=== PATIENT | male | born 1950 | race Two or more races ===

== ENCOUNTER 2017-08-08 12:39 | Outpatient (CLI) | payer BC ==
[2017-08-08 13:31] LABS: HEMATOCRIT 42 % (39-51); HEMOGLOBIN 14.1 g/dL (13.5-17.5); LYMPHOCYTES % (AUTO) 31.3 % (20.0-44.0); MEAN CORPUSCULAR HEMOGLOBIN 30 PG (26.0-33.0); MEAN CORPUSCULAR HGB CONC 34 g/dl (31.0-36.0); MEAN CORPUSCULAR VOLUME 90 fL (80-96); MONOCYTES % (AUTO) 7.1 % (2.0-12.0); NEUTROPHILS % (AUTO) 59.4 % (43.0-81.0); PLATELET COUNT (AUTO) 184 /CMM (150-450); RDW COEFFICIENT OF VARIATION 12.2 (11.5-15.0); RED BLOOD CELL COUNT(AUTO) 4.67 MIL/uL (4.5-6.0); WHITE BLOOD COUNT (AUTO) 7.3 K/uL (4.3-11.0)
[2017-08-08 13:32] LABS: BASOPHILS % (AUTO) 0.3 % (0.0-2.0); EOSINOPHILS # (AUTO) 0.1 /CMM (0.0-0.7); EOSINOPHILS % (AUTO) 1.9 % (0.0-6.0); LYMPHOCYTES # (AUTO) 2.3 /CMM (0.8-4.8); MONOCYTES # (AUTO) 0.5 /CMM (0.1-1.30); NEUTROPHILS # (AUTO) 4.4 /CMM (1.8-8.9)
[2017-08-08 13:40] LABS: INR 0.95 (0.87-1.13); PROTHROMBIN TIME 9.9 SECS (9.5-12.7)
[2017-08-08 14:19] LABS: ALBUMIN 3.7 g/dL (3.4-5.0); BILIRUBIN,TOTAL 0.4 mg/dL (0.2-1.0); CALCIUM, SERUM 8.6 mg/dL (8.5-10.1); CREATININE 1.1 mg/dL (0.6-1.3); POTASSIUM 3.8 mmol/L (3.5-5.1); TOTAL PROTEIN, SERUM 7.4 g/dL (6.4-8.2)
[2017-08-08 16:31] LABS: APPEARANCE,URINE CLEAR (CLEAR); BILIRUBIN,URINE NEGATIVE (NEGATIVE); BLOOD, URINE 1+ Ery/uL (NEGATIVE); COLOR,URINE YELLOW (YELLOW); KETONES,URINE NEGATIVE (NEGATIVE); LEUKOCYTE ESTERASE ,URINE NEGATIVE (NEGATIVE); NITRITE, URINE NEGATIVE (NEGATIVE); PH,URINE 6.5 (5.0-8.0); PROTEIN,URINE NEGATIVE (NEGATIVE); UGLUCOSE NEGATIVE (NEGATIVE); UROBILINOGEN,URINE 0.2 EU/dL (0.2)
[2017-08-08 17:06] LABS: BACTERIA,URINE Moderate /HPF (None Seen); SQUAMOUS EPITHELIAL CELL,UR Few /HPF (None Seen)
== END 2017-08-08 23:59 | disposition home or self-care (01) ==
LOC: LAB 12:39
PROVIDERS: ATTEND Family Medicine
DX: Z01.818 Encounter for other preprocedural examination (principal)
CPT/HCPCS: 36415; 71020-TC; 80053-TC; 81000-TC; 85025-TC; 85610-TC; 87086-TC

== ENCOUNTER 2018-04-30 11:28 | Outpatient (CLI) | payer BC ==
[2018-04-30 11:55] LABS: BASOPHILS % (AUTO) 0.5 % (0.0-2.0); HEMATOCRIT 45 % (39-51); HEMOGLOBIN 14.8 g/dL (13.5-17.5); LYMPHOCYTES # (AUTO) 1.6 /CMM (0.8-4.8); LYMPHOCYTES % (AUTO) 23.9 % (20.0-44.0); MEAN CORPUSCULAR HEMOGLOBIN 30 PG (26.0-33.0); MEAN CORPUSCULAR HGB CONC 33 g/dl (31.0-36.0); MEAN CORPUSCULAR VOLUME 91 fL (80-96); MONOCYTES # (AUTO) 0.4 /CMM (0.1-1.30); MONOCYTES % (AUTO) 6.1 % (2.0-12.0); NEUTROPHILS # (AUTO) 4.5 /CMM (1.8-8.9); NEUTROPHILS % (AUTO) 68.5 % (43.0-81.0); PLATELET COUNT (AUTO) 206 /CMM (150-450); RDW COEFFICIENT OF VARIATION 13.9 (11.5-15.0); RED BLOOD CELL COUNT(AUTO) 4.93 MIL/uL (4.5-6.0); WHITE BLOOD COUNT (AUTO) 6.6 K/uL (4.3-11.0)
[2018-04-30 12:08] LABS: ALBUMIN 3.8 g/dL (3.4-5.0); BILIRUBIN,TOTAL 0.6 mg/dL (0.2-1.0); CALCIUM, SERUM 8.1 mg/dL (8.5-10.1); CREATININE 1.1 mg/dL (0.6-1.3); POTASSIUM 4.1 mmol/L (3.5-5.1); TOTAL PROTEIN, SERUM 7.4 g/dL (6.4-8.2)
[2018-04-30 13:24] LABS: THYROID STIMULATING HORMONE 2.184 uIU/mL (0.358-3.74)
== END 2018-04-30 23:59 | disposition home or self-care (01) ==
LOC: LAB 11:28
PROVIDERS: ATTEND Family Medicine
DX: I70.0 Atherosclerosis of aorta (principal); R91.1 Solitary pulmonary nodule
CPT/HCPCS: 36415; 71250-TC; 80053-TC; 80061-TC; 84439-TC; 84443-TC; 85025-TC

== ENCOUNTER 2021-04-27 09:56 | Outpatient (CLI) | payer BC | END 2021-04-27 23:59 | disposition home or self-care (01) | LOC: CT 09:56 | PROVIDERS: ATTEND Family Medicine | DX: I25.10 Atherosclerotic heart disease of native coronary artery without angina pectoris (principal); R91.1 Solitary pulmonary nodule; I70.0 Atherosclerosis of aorta; I71.2 Thoracic aortic aneurysm, without rupture; J43.2 Centrilobular emphysema; J47.9 Bronchiectasis, uncomplicated; K76.89 Other specified diseases of liver; N20.0 Calculus of kidney; N28.1 Cyst of kidney, acquired; M47.815 Spondylosis without myelopathy or radiculopathy, thoracolumbar region; M85.88 Other specified disorders of bone density and structure, other site | CPT/HCPCS: 71250-TC ==

== ENCOUNTER 2021-07-19 08:17 | Outpatient (CLI) | payer BC ==
[2021-07-19 09:16] LABS: BASOPHILS # (AUTO) 0.1 K/uL (0.0-0.2); BASOPHILS % (AUTO) 0.9 % (0.0-2.0); EOSINOPHILS % (AUTO) 2.1 % (0.0-6.0); HEMATOCRIT 39 % (39-51); LYMPHOCYTES # (AUTO) 1.4 K/uL (0.8-4.8); LYMPHOCYTES % (AUTO) 20.4 % (20.0-44.0); MEAN CORPUSCULAR HGB CONC 33 g/dl (31.0-36.0); MEAN CORPUSCULAR VOLUME 92 fL (80-96); MONOCYTES # (AUTO) 0.5 K/uL (0.1-1.30); MONOCYTES % (AUTO) 6.7 % (2.0-12.0); NEUTROPHILS # (AUTO) 4.8 K/uL (1.8-8.9); NEUTROPHILS % (AUTO) 69.9 % (43.0-81.0); PLATELET COUNT (AUTO) 186 K/uL (150-450); RED BLOOD CELL COUNT(AUTO) 4.25 MIL/uL (4.5-6.0); WHITE BLOOD COUNT (AUTO) 6.9 K/uL (4.3-11.0)
[2021-07-19 10:37] LABS: CREATININE 1.1 mg/dL (0.6-1.3); POTASSIUM 3.5 mmol/L (3.5-5.1)
== END 2021-07-19 23:59 | disposition home or self-care (01) ==
LOC: LAB 08:17
PROVIDERS: ATTEND Internal Medicine
DX: I25.10 Atherosclerotic heart disease of native coronary artery without angina pectoris (principal); I10 Essential (primary) hypertension; D68.9 Coagulation defect, unspecified; R07.89 Other chest pain
CPT/HCPCS: 36415; 80048-TC; 85025-TC; 85610-TC; 85730-TC

== ENCOUNTER 2021-07-23 07:13 | Day surgery (SDC) | payer BC ==
[2021-07-23] VITALS (8 sets, daily range): BP systolic 89–119; BP diastolic 47–84
[~2021-07-23] VITALS: Ht 170.2 cm; Wt 53.1 kg
[2021-07-23] MEDS ORDERED: MIDAZOLAM HCL 2 MG/2ML VIAL ONE (08:34)
[2021-07-23] MEDS ORDERED: LIDOCAINE HCL/MPF 1% 30 ML VIAL IJ ONE (08:34)
[2021-07-23] MEDS ORDERED: FENTANYL PF 100MCG/2ML AMPUL ONE (08:34)
[2021-07-23] MEDS ORDERED: IV NS 0.9% 1,000 ML ONE (08:35)
[2021-07-23] MEDS ORDERED: NITROGLYCERIN IN 5 % DEXTROSE 250 ML IV ONE (08:35)
[2021-07-23] MEDS ORDERED: IV SET PRIMARY PUMP SET 1 EA INFUS.SET MC ONE (08:35)
[2021-07-23] MEDS ORDERED: IODIXANOL 150 ML IV ONE (08:56)
--- NOTE | 2021-07-23 10:33 | NUR ---
Placed oxygen saturation probe on right index finger of access site @99%. 3ml of air was removed, no bleeding noted. CMS WNL.
--- NOTE | 2021-07-23 10:48 | NUR ---
Placed oxygen saturation probe on right index finger of access site @98%. 3ml of air was removed, no bleeding noted.
--- NOTE | 2021-07-23 11:03 | NUR ---
Placed oxygen saturation probe on right index finger of access site @99%. 3ml of air was removed, no bleeding noted.
--- NOTE | 2021-07-23 11:18 | NUR ---
Placed oxygen saturation probe on right index finger of access site @99%. 5ml of air was removed, no bleeding noted.
--- NOTE | 2021-07-23 11:43 | NUR ---
IV removed. Catheter intact and site benign. Pressure and 4x4 applied to site. No bleeding noted.
[2021-07-23] MEDS ORDERED: ATOR20TA PO (11:52)
[2021-07-23] MEDS ORDERED: ASPI-1169 PO (11:52)
[2021-07-23] MEDS ORDERED: CYAN-51 PO (11:55)
--- NOTE | 2021-07-23 12:00 | NUR ---
Patient discharged to home in stable condition. Written and verbal after care instructions given. Patient verbalizes understanding of instruction.
== END 2021-07-23 12:05 | disposition home or self-care (01) ==
LOC: CATHLAB 07:13
PROVIDERS: ATTEND Internal Medicine
DX: R94.39 Abnormal result of other cardiovascular function study (principal); I10 Essential (primary) hypertension; Z98.890 Other specified postprocedural states; Z79.899 Other long term (current) drug therapy
CPT/HCPCS: 93458; J1644; J2250; J3010; J3490; J7030; Q9967; C1887; G0500

== ENCOUNTER 2021-09-29 11:12 | Outpatient (CLI) | payer BC ==
[~2021-09-29 11:12] MED LIST: ASPI-1169 PO; ATOR20TA PO; CYAN-51 PO
[2021-09-29 13:38] LABS: BASOPHILS # (AUTO) 0.1 K/uL (0.0-0.2); BASOPHILS % (AUTO) 0.9 % (0.0-2.0); EOSINOPHILS % (AUTO) 1.9 % (0.0-6.0); HEMATOCRIT 40 % (39-51); HEMOGLOBIN 13.1 g/dL (13.5-17.5); LYMPHOCYTES # (AUTO) 1.2 K/uL (0.8-4.8); LYMPHOCYTES % (AUTO) 13.9 % (20.0-44.0); MEAN CORPUSCULAR HGB CONC 33 g/dl (31.0-36.0); MEAN CORPUSCULAR VOLUME 93 fL (80-96); MONOCYTES # (AUTO) 0.7 K/uL (0.1-1.30); MONOCYTES % (AUTO) 8.4 % (2.0-12.0); NEUTROPHILS # (AUTO) 6.5 K/uL (1.8-8.9); NEUTROPHILS % (AUTO) 74.9 % (43.0-81.0); PLATELET COUNT (AUTO) 259 K/uL (150-450); RED BLOOD CELL COUNT(AUTO) 4.28 MIL/uL (4.5-6.0); WHITE BLOOD COUNT (AUTO) 8.6 K/uL (4.3-11.0)
[2021-09-29 13:40] LABS: BILIRUBIN,URINE NEGATIVE (NEGATIVE); COLOR,URINE YELLOW (YELLOW); LEUKOCYTE ESTERASE ,URINE NEGATIVE (NEGATIVE); NITRITE, URINE NEGATIVE (NEGATIVE); PROTEIN,URINE NEGATIVE (NEGATIVE); UGLUCOSE NEGATIVE (NEGATIVE); UROBILINOGEN,URINE 0.2 EU/dL (0.2)
[2021-09-29 13:59] LABS: ALBUMIN 3.3 g/dL (3.4-5.0); BILIRUBIN,TOTAL 0.3 mg/dL (0.2-1.0); CALCIUM, SERUM 8.3 mg/dL (8.5-10.1); CREATININE 1.1 mg/dL (0.6-1.3); POTASSIUM 3.5 mmol/L (3.5-5.1); TOTAL PROTEIN, SERUM 7.1 g/dL (6.4-8.2)
[2021-09-29 14:09] LABS: THYROID STIMULATING HORMONE 2.005 uIU/mL (0.358-3.74)
[2021-09-29 16:46] LABS: BACTERIA,URINE None seen /HPF (None Seen); SQUAMOUS EPITHELIAL CELL,UR Few /HPF (None Seen); WBC,URINE 0-2 /HPF (0-3)
== END 2021-09-29 23:59 | disposition home or self-care (01) ==
LOC: LAB 11:12
PROVIDERS: ATTEND Family Medicine
DX: E55.9 Vitamin D deficiency, unspecified (principal); R73.9 Hyperglycemia, unspecified; Z79.899 Other long term (current) drug therapy
CPT/HCPCS: 36415; 80053-TC; 80061-TC; 81001; 82306; 84439-TC; 84443-TC; 85025-TC; 87086-TC

== ENCOUNTER 2021-10-19 10:35 | Outpatient (CLI) | payer BC ==
[2021-10-19 11:16] LABS: BILIRUBIN,URINE NEGATIVE (NEGATIVE); COLOR,URINE YELLOW (YELLOW); LEUKOCYTE ESTERASE ,URINE TRACE (NEGATIVE); NITRITE, URINE NEGATIVE (NEGATIVE); PH,URINE 6.5 (5.0-8.0); PROTEIN,URINE NEGATIVE (NEGATIVE); UGLUCOSE NEGATIVE (NEGATIVE); UROBILINOGEN,URINE 0.2 EU/dL (0.2)
[2021-10-19 11:43] LABS: BACTERIA,URINE Rare /HPF (None Seen); SQUAMOUS EPITHELIAL CELL,UR Rare /HPF (None Seen); WBC,URINE 0-2 /HPF (0-3)
== END 2021-10-19 23:59 | disposition home or self-care (01) ==
LOC: LAB 10:35
PROVIDERS: ATTEND Family Medicine
DX: R31.9 Hematuria, unspecified (principal)
CPT/HCPCS: 81001; 87086-TC

== ENCOUNTER 2021-10-25 09:55 | Outpatient (CLI) | payer BC ==
[2021-10-25] MEDS ORDERED: IV NS 0.9% 250 ML IV ONE (10:23)
[2021-10-25] MEDS ORDERED: IOHEXOL-300 100 ML VIAL IV ONE (10:23)
== END 2021-10-25 23:59 | disposition home or self-care (01) ==
LOC: CT 09:55
PROVIDERS: ATTEND Family Medicine
DX: I71.2 Thoracic aortic aneurysm, without rupture (principal); I25.10 Atherosclerotic heart disease of native coronary artery without angina pectoris; J43.9 Emphysema, unspecified; R31.9 Hematuria, unspecified; R91.1 Solitary pulmonary nodule; I70.0 Atherosclerosis of aorta; K76.89 Other specified diseases of liver; N28.1 Cyst of kidney, acquired; N20.0 Calculus of kidney; N40.0 Benign prostatic hyperplasia without lower urinary tract symptoms
CPT/HCPCS: 71275; 74178; J7050; Q9967

== ENCOUNTER 2022-10-04 09:26 | Outpatient (CLI) | payer BC ==
[2022-10-04] MEDS ORDERED: LIDOCAINE HCL/MPF 1% 30 ML VIAL IJ ONE (10:23)
[2022-10-04] MEDS ORDERED: MUPIROCIN 2% CREAM 15 GM TUBE TP ONE (11:05)
[2022-10-04] MEDS ORDERED: LIDOCAINE SOLN 4% 50 ML BOTTLE ONE (11:06)
== END 2022-10-04 23:59 | disposition home or self-care (01) ==
LOC: WOU 09:26
PROVIDERS: ATTEND Podiatrist Foot & Ankle Surgery
DX: L60.0 Ingrowing nail (principal); L03.032 Cellulitis of left toe; M79.672 Pain in left foot; M79.671 Pain in right foot; Z79.82 Long term (current) use of aspirin
CPT/HCPCS: 11730; J3490

== ENCOUNTER 2022-10-10 09:02 | Outpatient (CLI) | payer BC ==
[2022-10-10 10:12] LABS: CALCIUM, SERUM 8.6 mg/dL (8.5-10.1); CREATININE 1.3 mg/dL (0.6-1.3); POTASSIUM 3.9 mmol/L (3.5-5.1)
== END 2022-10-10 23:59 | disposition home or self-care (01) ==
LOC: LAB 09:02
PROVIDERS: ATTEND Family Medicine
DX: I71.20 Thoracic aortic aneurysm, without rupture, unspecified (principal)
CPT/HCPCS: 36415; 80048-TC

== ENCOUNTER 2022-10-11 08:54 | Outpatient (CLI) | payer BC ==
[2022-10-11] MEDS ORDERED: IOHEXOL-350 100 ML VIAL IV ONE (09:15)
== END 2022-10-11 23:59 | disposition home or self-care (01) ==
LOC: CT 08:54
PROVIDERS: ATTEND Family Medicine
DX: J43.2 Centrilobular emphysema (principal); R91.1 Solitary pulmonary nodule; I71.20 Thoracic aortic aneurysm, without rupture, unspecified; K76.89 Other specified diseases of liver; I25.10 Atherosclerotic heart disease of native coronary artery without angina pectoris
CPT/HCPCS: 71275; Q9967

== ENCOUNTER 2023-01-13 10:34 | Outpatient (CLI) | payer BC ==
[2023-01-13 12:23] LABS: BASOPHILS # (AUTO) 0.1 K/uL (0.0-0.2); EOSINOPHILS % (AUTO) 2.7 % (0.0-6.0); HEMATOCRIT 43 % (39-51); HEMOGLOBIN 13.8 g/dL (13.5-17.5); LYMPHOCYTES # (AUTO) 1.7 K/uL (0.8-4.8); LYMPHOCYTES % (AUTO) 23.3 % (20.0-44.0); MEAN CORPUSCULAR HGB CONC 32 g/dl (31.0-36.0); MEAN CORPUSCULAR VOLUME 90 fL (80-96); MONOCYTES # (AUTO) 0.6 K/uL (0.1-1.30); MONOCYTES % (AUTO) 7.9 % (2.0-12.0); NEUTROPHILS # (AUTO) 4.7 K/uL (1.8-8.9); NEUTROPHILS % (AUTO) 65.1 % (43.0-81.0); PLATELET COUNT (AUTO) 173 K/uL (150-450); RED BLOOD CELL COUNT(AUTO) 4.74 MIL/uL (4.5-6.0); WHITE BLOOD COUNT (AUTO) 7.2 K/uL (4.3-11.0)
[2023-01-13 12:24] LABS: BILIRUBIN,URINE NEGATIVE (NEGATIVE); COLOR,URINE YELLOW (YELLOW); LEUKOCYTE ESTERASE ,URINE NEGATIVE (NEGATIVE); NITRITE, URINE NEGATIVE (NEGATIVE); PH,URINE 6.5 (5.0-8.0); PROTEIN,URINE NEGATIVE (NEGATIVE); UGLUCOSE NEGATIVE (NEGATIVE); UROBILINOGEN,URINE 0.2 EU/dL (0.2)
[2023-01-13 12:26] LABS: BACTERIA,URINE Rare /HPF (None Seen); SQUAMOUS EPITHELIAL CELL,UR Few /HPF (None Seen); WBC,URINE 0-2 /HPF (0-3)
[2023-01-13 12:38] LABS: IRON, SERUM 53 ug/dl (50-175); TOTAL IRON BINDING CAPACITY 298 ug/dl (250-450)
[2023-01-13 12:48] LABS: CHOLESTEROL 120 mg/dL (<200); FERRITIN 103 ng/mL (8-388); HDL CHOLESTEROL 44 mg/dL (40-60); LDL 71 mg/dL (0-99); THYROID STIMULATING HORMONE 2.194 uIU/mL (0.358-3.74); TRIGLYCERIDES 88 mg/dL (30-150); URIC ACID 5.3 mg/dL (2.6-7.2)
[2023-01-13 13:02] LABS: ALANINE AMINOTRANSFERASE 61 U/L (12-78); ALBUMIN 3.6 g/dL (3.4-5.0); ALKALINE PHOSPHATASE 88 U/L (46-116); ASPARTATE AMINOTRANSFERASE 35 U/L (15-37); BILIRUBIN,TOTAL 0.3 mg/dL (0.2-1.0); CALCIUM, SERUM 8.4 mg/dL (8.5-10.1); CARBON DIOXIDE 29 mmol/L (21-32); CHLORIDE 109 mmol/L (98-107); CREATININE 1.4 mg/dL (0.6-1.3); GLUCOSE 88 mg/dL (74-106); MAGNESIUM 2.4 mg/dL (1.8-2.4); POTASSIUM 3.9 mmol/L (3.5-5.1); SODIUM SERUM 143 mmol/L (136-145); TOTAL PROTEIN, SERUM 7.1 g/dL (6.4-8.2); UREA NITROGEN, BLOOD 21 mg/dL (7-18)
== END 2023-01-13 23:59 | disposition home or self-care (01) ==
LOC: LAB 10:34
PROVIDERS: ATTEND Family Medicine
DX: I10 Essential (primary) hypertension (principal)
CPT/HCPCS: 36415; 80053-TC; 80061-TC; 81001; 82306; 82607-TC; 82728-TC; 83540-TC; 83735-TC; 84439-TC; 84443-TC; 84481; 84550-TC; 85025-TC

== ENCOUNTER → 2024-02-07 | Outpatient (CLI) | payer BC | END | disposition home or self-care (01) | LOC: CT 10:10 | PROVIDERS: ATTEND Family Medicine | DX: J34.3 Hypertrophy of nasal turbinates (principal); J34.89 Other specified disorders of nose and nasal sinuses | CPT/HCPCS: 70486-TC ==